=== PATIENT | male | born 1955 ===

== ENCOUNTER → 2017-08-01 | Outpatient (CLI) | payer OTHER ==
[~2017-08-01] MED LIST: ACET500; AMIT10; AMIT10 PO; ANDROGEL; ASPI81CH PO; ASPI81EC; ASPI81EC PO; ATOR20 PO; BUPR100; BUPR100 PO; CELE200; CIPR500 PO; CIPR750 PO; CLIN300 PO; DEXILANT PO; DEXL60CA3 PO; DIPH50 PO; Depo-Testos200 MG/ML IM; ERGO400 PO; ERGO50000 PO; GUAI200 PO; HCTZ; HCTZ 25MG QD; HYDACE5 PO; HYDCHL25; HYDCHL25 PO; LEVSOD100 PO; LOSA50 PO; METPHE20; METR500 PO; MIRALAX; NEBI5 PO; OLME20 PO; OMEP20ER; OMEPRAZOLE MAGN20 MG PO; ONDA4 PO; POLY17UD PO; TESTOSTERONE; TIZANIDINE HCL4 MG PO; VIT D; VITAMIN D5000 UNIT PO; Zantac150 MG PO; [UNRECOGNIZED DRUG - OTHER]
== END | disposition home or self-care (01) ==
LOC: LAB SHORT 09:58 → PLD 09:58
DX: D18.01 Hemangioma of skin and subcutaneous tissue (principal)
CPT/HCPCS: 88305

== ENCOUNTER 2018-06-05 09:44 | Day surgery (SDC) | payer OTHER ==
[~2018-06-05] VITALS: Ht 188 cm; Wt 112.2 kg
[~2018-06-05 09:44] MED LIST changes: +ACID REDUCER 1150 MG PO; +Carisoprodol350 MG PO; +LOSARTAN POTAS100 MG PO; +SYNTHROID0.2 MG PO; +TESTONE CI200 MG/1 M IM; +VITAMIN D31000 UNIT PO
== END 2018-06-05 11:18 | disposition home or self-care (01) ==
LOC: ORSCSDS 09:44
PROVIDERS: Internal Medicine Gastroenterology
PROC: 0DB58ZX Excision of Esophagus, Via Natural or Artificial Opening Endoscopic, Diagnostic (ICD-10-PCS; principal; 2018-06-05 11:15)
PROC: 0D758ZZ Dilation of Esophagus, Via Natural or Artificial Opening Endoscopic (ICD-10-PCS; principal; 2018-06-05 11:15)
PROC: 0DB68ZX Excision of Stomach, Via Natural or Artificial Opening Endoscopic, Diagnostic (ICD-10-PCS; principal; 2018-06-05 11:15)
DX: R13.10 Dysphagia, unspecified (principal); K21.0 Gastro-esophageal reflux disease with esophagitis; K44.9 Diaphragmatic hernia without obstruction or gangrene; I10 Essential (primary) hypertension; G47.33 Obstructive sleep apnea (adult) (pediatric); F32.9 Major depressive disorder, single episode, unspecified; E03.9 Hypothyroidism, unspecified; Z86.11 Personal history of tuberculosis; E66.9 Obesity, unspecified; Z87.891 Personal history of nicotine dependence; Z68.31 Body mass index [BMI] 31.0-31.9, adult; Z79.899 Other long term (current) drug therapy
CPT/HCPCS: 88305; 88342; J2250; J7120

== ENCOUNTER 2020-06-23 10:41 | Day surgery (SDC) | payer OTHER ==
[~2020-06-23] VITALS: Ht 188 cm; Wt 108.2 kg
[2020-06-23] MEDS ORDERED: TIZA4 (11:07)
[2020-06-23] MEDS ORDERED: GUAI600T33 (11:08)
[2020-06-23] MEDS ORDERED: DRIMINATE50 MG (11:08)
== END 2020-06-23 12:10 | disposition home or self-care (01) ==
LOC: ORSCSDS 10:41
PROVIDERS: Internal Medicine Gastroenterology
PROC: 0DB58ZX Excision of Esophagus, Via Natural or Artificial Opening Endoscopic, Diagnostic (ICD-10-PCS; principal; 2020-06-23 11:45)
PROC: 0DB78ZX Excision of Stomach, Pylorus, Via Natural or Artificial Opening Endoscopic, Diagnostic (ICD-10-PCS; principal; 2020-06-23 11:45)
DX: K31.89 Other diseases of stomach and duodenum (principal); K29.70 Gastritis, unspecified, without bleeding; K31.7 Polyp of stomach and duodenum; K20.90 Esophagitis, unspecified without bleeding; Z87.891 Personal history of nicotine dependence; I10 Essential (primary) hypertension; E78.5 Hyperlipidemia, unspecified; G47.33 Obstructive sleep apnea (adult) (pediatric); Z79.82 Long term (current) use of aspirin; Z79.899 Other long term (current) drug therapy
CPT/HCPCS: 88305; 88341; 88342; J2704; J7120

== ENCOUNTER 2021-06-04 06:05 | Day surgery (SDC) | payer OTHER ==
[~2021-06-04] VITALS: Ht 185.4 cm; Wt 109.0 kg
[~2021-06-04 06:05] MED LIST changes: +Aspir 8181 MG; +Aspir 8181 MG PO; +DRIMINATE50 MG; +GUAI600T33; +TIZA4
--- NOTE | 2021-06-04 10:05 | NUR ---
PT R RADIAL TR BAND FULLY DEFLATED. NO BLEEDING NOTED. VSS. NADN. PT AMBULATES TO RESTROOM AND BACK WITHOUT DIFF.
--- NOTE | 2021-06-04 11:03 | NUR ---
PT TR BAND REMOVED. CLOTH DOT APPLIED. NO BLEEDING OR HEMATOMA NOTED. VSS. NADN. AMBULATES TO RESTROOM AND BACK PT VERBALIZES UNDERSTANDING WRITTEN AND VERBAL ORDERS. IV DC'D. CATH INTACT. PRESSURE DSG APPLIED. PT DC TO HOME VIA WC BY S/O
== END 2021-06-04 11:10 | disposition home or self-care (01) ==
LOC: MHTC 06:05
DX: I25.119 Atherosclerotic heart disease of native coronary artery with unspecified angina pectoris (principal); I10 Essential (primary) hypertension; E66.9 Obesity, unspecified; Z68.31 Body mass index [BMI] 31.0-31.9, adult; Z87.891 Personal history of nicotine dependence; Z79.82 Long term (current) use of aspirin
CPT/HCPCS: 76937; 93454; 99152; 99153; C1769; C1887; C1894; J1644; J2250; J3010; J7030; Q9967

== ENCOUNTER → 2021-11-14 | Outpatient (CLI) | payer OTHER | LOC: LAB SHORT 12:37 | PROVIDERS: Internal Medicine | DX: E87.8 Other disorders of electrolyte and fluid balance, not elsewhere classified (principal) | CPT/HCPCS: 81050 ==

== ENCOUNTER 2021-12-12 19:08 | Emergency (ER) | payer OTHER ==
[~2021-12-12] VITALS: Ht 185.4 cm; Wt 108.9 kg
== END 2021-12-12 21:07 | disposition home or self-care (01) ==
LOC: ER 19:08
DX: S61.412A Laceration without foreign body of left hand, initial encounter (principal); I10 Essential (primary) hypertension; F32.A Depression, unspecified; W31.2XXA Contact with powered woodworking and forming machines, initial encounter; Z23 Encounter for immunization; Z88.5 Allergy status to narcotic agent; Z88.0 Allergy status to penicillin; Z91.048 Other nonmedicinal substance allergy status; Z79.899 Other long term (current) drug therapy; Z79.82 Long term (current) use of aspirin; Z87.891 Personal history of nicotine dependence
CPT/HCPCS: 12002; 90714; 99282-25

== ENCOUNTER → 2022-08-11 | Outpatient (CLI) | payer OTHER ==
[2022-08-11 14:04] LABS: BASOPHILS ABSOLUTE AUTO 0.05 K/mm3 (0.00-0.23); BASOPHILS PERCENT AUTO 1 % (0-2); EOSINOPHILS ABSOLUTE AUTO 0.18 K/mm3 (0.00-0.68); EOSINOPHILS PERCENT AUTO 2 % (0-6); Hematocrit 51.7 % (37.0-53.0); Hemoglobin 16.6 g/dL (13.5-17.5); IMMATURE GRAN ABSOLUTE AUTO 0.03 K/mm3 (0.00-0.10); IMMATURE GRAN PERCENT AUTO 0 % (0-1); LYMPHOCYTES ABSOLUTE AUTO 2.41 K/mm3 (0.84-5.20); LYMPHOCYTES PERCENT AUTO 29 % (21-46); MONOCYTES ABSOLUTE AUTO 0.85 K/mm3 (0.16-1.47); MONOCYTES PERCENT AUTO 10 % (4-13); Mean Corpuscular HGB 25.1 pg (26.0-34.0); Mean Corpuscular HGB Conc 32.1 g/dL (31.5-36.5); Mean Corpuscular Volume 78 fL (80-100); Mean Platelet Volume 10.8 fL (9.1-12.4); NEUTROPHILS ABSOLUTE AUTO 4.86 K/mm3 (1.96-9.15); NEUTROPHILS PERCENT AUTO 58 % (41-73); Platelet Count 250 K/mm3 (150-400); RDW Coefficient Variation 18.6 % (11.7-14.2); RDW Standard Deviation 49.6 fL (35.1-46.3); Red Blood Cell Count 6.61 M/mm3 (4.30-5.90); White Blood Cell Count 8.38 K/mm3 (4.00-11.30)
== END | disposition home or self-care (01) ==
LOC: LAB 13:30 → LAB SHORT 13:30
PROVIDERS: Internal Medicine Hematology & Oncology
DX: D75.1 Secondary polycythemia (principal)
CPT/HCPCS: 85025